=== PATIENT | male | born 1990 | race Caucasian/White ===

== ENCOUNTER 2020-07-05 15:11 | Emergency (ER) | payer OTHER ==
[~2020-07-05] VITALS: Ht 188 cm; Wt 93.6 kg
--- NOTE | 2020-07-05 15:25 | NUR ---
Pt ambulatory without gait disturbance from triage to room now. Changing into gown and awaiting MD assessment.
--- NOTE | 2020-07-05 15:40 | NUR ---
at bedside for exam.
--- NOTE | 2020-07-05 16:18 | NUR ---
hospital carrier completed, radiology result reviewed and chart marked for recheck.
[2020-07-05 16:36] VITALS: BP 116/70
== END 2020-07-05 16:38 | disposition home or self-care (01) ==
LOC: ED 16:30
DX: R07.89 Other chest pain (principal); K21.9 Gastro-esophageal reflux disease without esophagitis; J45.909 Unspecified asthma, uncomplicated
CPT/HCPCS: 71045; 93005; 99283